=== PATIENT | male | born 1985 | race Caucasian/White ===

== ENCOUNTER 2016-09-05 00:17 | Emergency (ER) | payer BC, OTHER ==
[2016-09-05 00:23] VITALS: BP 115/60
--- NOTE | 2016-09-05 00:28 | EDM.PDOC ---
ED HPI GENERAL MEDICAL PROBLEM - General Chief Complaint: Upper Extremity Injury/Pain Stated Complaint: SHOULDER PAIN Time Seen by Provider: 09/05/16 00:26 - History of Present Illness INITIAL COMMENTS - FREE TEXT/NARRATIVE: HISTORY AND PHYSICAL: History of present illness: Patient is a 31-year-old white male that since her acute right shoulder pain patient states he has had problems with the shoulder off and on for quite some time but got progressively worse recently he does not recall any recent trauma or other concern. Review of systems: As per history of present illness and below otherwise all systems reviewed and negative. Past medical history: As per history of present illness and as reviewed below otherwise noncontributory. Surgical history: As per history of present illness and as reviewed below otherwise noncontributory. Social history: No reported history of drug or alcohol abuse. Family history: As per history of present illness and as reviewed below otherwise noncontributory. Physical exam: HEENT: Atraumatic, normocephalic, pupils reactive, negative for conjunctival pallor or scleral icterus, mucous membranes moist, throat clear, neck supple, nontender, trachea midline. Lungs: Clear to auscultation, breath sounds equal bilaterally, chest nontender. Heart: S1S2, regular, negative for clicks, rubs, or JVD. Abdomen: Soft, nondistended, nontender. Negative for masses or hepatosplenomegaly. Negative for costovertebral tenderness. Pelvis: Stable nontender. Genitourinary: Deferred. Rectal: Deferred. Extremities: Right shoulder is without any gross abnormalities he does have somewhat limited range of motion secondary to pain there is no crepitation warmth CMS neurovascular exam are unremarkable Neuro: Awake, alert, oriented. Cranial nerves II through XII unremarkable. Cerebellum unremarkable. Motor and sensory unremarkable throughout. Exam nonfocal. Diagnostics: X-ray right shoulder Therapeutics: Sling Impression: #1 right shoulder pain etiology to be determined Definitive disposition and diagnosis as appropriate pending reevaluation and review of above. Right Shoulder Pain Score (Numeric/FACES): 8 - Related Data Allergies Allergy/AdvReac Type Severity Reaction Status Date / Time perfumes Allergy Airway Uncoded 09/05/16 00:21 Tightness Home Meds: Home Meds Naproxen Sodium [Aleve] 1 tab PO TID 10/24/15 [History] Past Medical History - Past Health History Medical/Surgical History: Denies Medical/Surgical History HEENT History: Reports: None Cardiovascular History: Reports: None Respiratory History: Reports: Asthma Other Respiratory History: asthma as a child, pt states he thinks he has sleep apnea but has never been tested Gastrointestinal History: Reports: GERD Genitourinary History: Reports: None Musculoskeletal History: Reports: None Neurological History: Reports: None Psychiatric History: Reports: None Endocrine/Metabolic History: Reports: Obesity/BMI 30+ Hematologic History: Reports: None Immunologic History: Reports: None Oncologic (Cancer) History: Reports: None Dermatologic History: Reports: Psoriasis - Past Surgical History Head Surgeries/Procedures: Reports: None Social & Family History - Family History Family Medical History: Noncontributory - Tobacco Use Smoking Status *Q: Current Every Day Smoker Years of Tobacco use: 15 Packs/Tins Daily: 2 - Alcohol Use Days Per Week of Alcohol Use: 7 Number of Drinks Per Day: 2 Total Drinks Per Week: 14 - Recreational Drug Use Recreational Drug Use: No Drug Use in Last 12 Months: No Review of Systems - Review of Systems Review Of Systems: ROS reveals no pertinent complaints other than HPI. Trauma Exam - Physical Exam Exam: See Below (See dictation) Course - Vital Signs Last Recorded V/S: Last Vital Signs Temp 36.4 C 09/05/16 00:21 Pulse 76 09/05/16 00:21 Resp 16 09/05/16 00:21 BP 115/60 09/05/16 00:21 Pulse Ox 99 09/05/16 00:21 - Orders/Labs/Meds Orders: Active Orders 24 hr Category Date Time Status Shoulder Comp Rt [CR] Stat Exams 09/05/16 00:23 Ordered Departure - Departure Time of Disposition: 00:27 Disposition: Home, Self-Care 01 Condition: good Clinical Impression: Shoulder pain - Discharge Information Forms: ED Department Discharge Additional Instructions: The following information is given to patients seen in the emergency department who are being discharged to home. This information is to outline your options for follow-up care. We provide all patients seen in our emergency department with a follow-up referral. The need for follow-up, as well as the timing and circumstances, are variable depending upon the specifics of your emergency department visit. If you don't have a primary care physician on staff, we will provide you with a referral. We always advise you to contact your personal physician following an emergency department visit to inform them of the circumstance of the visit and for follow-up with them and/or the need for any referrals to a consulting specialist. The emergency department will also refer you to a specialist when appropriate. This referral assures that you have the opportunity for followup care with a specialist. All of these measure are taken in an effort to provide you with optimal care, which includes your followup. Under all circumstances we always encourage you to contact your private physician who remains a resource for coordinating your care. When calling for followup care, please make the office aware that this follow-up is from your recent emergency room visit. If for any reason you are refused follow-up, please contact the [facility] emergency department at and asked to speak to the emergency department charge nurse. [facility] - Orth[facility] Professional [address], [address] [place] [address] Ultram as prescribed sling as directed followup with orthopedic clinic above call for appointment return as needed as discussed - My Orders Last 24 Hours: My Active Orders 09/05/16 00:23 Shoulder Comp Rt [CR] Stat - Assessment/Plan Last 24 Hours: My Active Orders 09/05/16 00:23 Shoulder Comp Rt [CR] Stat
--- NOTE | 2016-09-08 10:47 | CR ---
EXAM DATE: 09/05/16 PATIENT'S AGE: 31 Patient: CASE ESCOBAR Facility: [place], [place] Site . Site : 1985 Study: XRay Shoulder Right [id number]/[id number] 12:41:51 AM Ordering Physician: Doctor Suárez Final Report: INDICATION: pain RIGHT SHOULDER No fracture, dislocation, or destructive lesion of bone is seen. No significant arthritic changes or soft tissue abnormalities are identified. IMPRESSION: Negative right shoulder radiographs. LESLY CONROY MD [employer] Dictated by: Matthew Conroy MD @ 09/05/2016 00:46:28 (Electronic Signature) Report Signed by Proxy. NY[facility] LANG[facility] TISCH HOSPITALBeatriz
== END 2016-09-05 01:19 | disposition home or self-care (01) ==
LOC: MW.ED 00:17
DX: M25.511 Pain in right shoulder (principal); J45.909 Unspecified asthma, uncomplicated; F17.210 Nicotine dependence, cigarettes, uncomplicated; K21.9 Gastro-esophageal reflux disease without esophagitis; L40.9 Psoriasis, unspecified; E66.9 Obesity, unspecified; Z68.42 Body mass index [BMI] 45.0-49.9, adult; Z91.09 Other allergy status, other than to drugs and biological substances
CPT/HCPCS: 73030-26-RT; 73030-RT; 99283

== ENCOUNTER 2019-11-04 00:44 | Emergency (ER) | payer BC ==
[2019-11-04] MEDS ORDERED: Diphtheria,Pertussis(Acell),Tetanus Vaccine 0.5 ML Syringe IM ONE (00:56)
--- NOTE | 2019-11-04 01:01 | EDM.PDOC ---
ED HPI GENERAL MEDICAL PROBLEM - General Chief Complaint: Skin Complaint Stated Complaint: LACERATION TO RIGHT HAND Time Seen by Provider: 11/04/19 00:51 - History of Present Illness INITIAL COMMENTS - FREE TEXT/NARRATIVE: History of present illness: [] Accidentally put his hand through a glass window which shattered. He has multiple lacerations and abrasions on the dominant right upper extremity. Patient does not know when his last tetanus shot was. Patient has minor pain worse obviously when he touches these wounds. He has no limitation in range of motion or sensation in the distal right upper extremity. Review of systems: As per history of present illness and below otherwise all systems reviewed and negative. Past medical history: As per history of present illness and as reviewed below otherwise noncontribut ory. Surgical history: As per history of present illness and as reviewed below otherwise noncontributory. Social history: No reported history of drug or alcohol abuse. Family history: As per history of present illness and as reviewed below otherwise noncontributory. Physical exam: Constitutional - well developed, well-nourished and in no acute distress HEENT - normocephalic, no evidence of trauma - external nose and mouth normal - no mass in neck and no JVD - mucosae moist EYES - full EOM, PERRL, no icterus - no evidence of inflammation, injection, or drainage Respiratory - no respiratory distress, equal bilateral expansion Musculoskeletal no gross deformity of long bones or joints - no tenderness, swelling or edema Neurologic - Alert and oriented times four - CN II-XII grossly intact - motor sensory and coordination symmetrically normal Psychiatric - appropriate mood and affect with normal thought content Hematologic - No petechiae or purpura - mucosa appropriate color and sclera not pale - normal nail bed color and refill Integument -the patient is lacerations and puncture wounds on the right upper extremity. There is a 1.5 cm laceration on the volar surface of the forearm at the junction the middle and distal third. There is a 1 cm laceration across the PIP of the fourth digit dorsally. There is a 1 cm laceration along the margin of the distal segment of the fourth digit. There is a linear abrasion over the lateral margin of the first segment of the fifth digit on the ulnar side. There is a dorsal puncture wound on the forearm at the junction of the middle third and distal third. Otherwise no rash or evidence of trauma - normal turgor Diagnostics: [] Therapeutics: [] Impression: [] Plan: [] Definitive disposition and diagnosis as appropriate pending reevaluation and review of above. Right Lower Arm Pain Score (Numeric/FACES): 4 - Related Data Allergies Allergy/AdvReac Type Severity Reaction Status Date / Time perfumes Allergy Airway Uncoded 11/04/19 01:01 Tightness Home Meds: Home Meds Naproxen Sodium [Aleve] 1 tab PO TID 10/24/15 [History] Past Medical History - Past Health History Medical/Surgical History: Denies Medical/Surgical History HEENT History: Reports: None Cardiovascular History: Reports: None Respiratory History: Reports: Asthma Other Respiratory History: asthma as a child, pt states he thinks he has sleep apnea but has never been tested Gastrointestinal History: Reports: GERD Genitourinary History: Reports: None Musculoskeletal History: Reports: None Neurological History: Reports: None Psychiatric History: Reports: None Endocrine/Metabolic History: Reports: Obesity/BMI 30+ Hematologic History: Reports: None Immunologic History: Reports: None Oncologic (Cancer) History: Reports: None Dermatologic History: Reports: Psoriasis - Past Surgical History Head Surgeries/Procedures: Reports: None Social & Family History - Family History Family Medical History: Noncontributory ED ROS GENERAL - Review of Systems Review Of Systems: Comprehensive ROS is negative, except as noted in HPI. ED EXAM, SKIN/RASH Exam: See Below Text/Narrative:: My physical exam is in the HPI ED SKIN PROCEDURES - Laceration/Wound Repair Right Arm Appearance: Superficial Distal NVT: Neuro & Vascular Intact Anesthetic Type: Local Local Anesthesia - Lidocaine (Xylocaine): 1% Plain Local Anesthetic Volume: 5cc Skin Prep: Saline Exploration/Debridement/Repair: Wound Explored Closed with: Sutures Lac/Wound length In cm: 1.5 Suture Size: 4-0 # of Sutures: 4 Suture Type: Nylon Sterile Dressing Applied: Nurse Tetanus Status Addressed: Yes Course - Vital Signs Text/Narrative:: 1 wound on the volar forearm was sutured see procedure note the remainder were closed with Dermabond. Last Recorded V/S: Last Vital Signs Temp 98.1 F 11/04/19 00:58 Pulse 95 11/04/19 00:58 Resp 18 11/04/19 00:58 BP 132/86 11/04/19 00:58 Pulse Ox 99 11/04/19 00:58 - Orders/Labs/Meds Orders: Active Orders 24 hr Category Date Time Status Vaccines to be Administered [RC] PER UNIT ROUTINE Care 11/04/19 00:57 Active Meds: Medications Discontinued Medications Generic Name Dose Route Start Last Admin Trade Name Jolie PRN Reason Stop Dose Admin Diphtheria/Tetanus/Acell Pertussis 0.5 ml 11/04/19 00:56 11/04/19 01:19 Adacel IM 11/04/19 00:57 0.5 ml .ONCE ONE Administration Lidocaine HCl 5 ml 11/04/19 01:01 11/04/19 01:18 Xylocaine-Mpf 1% INJECT 11/04/19 01:02 5 ml ONETIME ONE Administration Octyl Cyanoacrylate 1 applic 11/04/19 01:02 11/04/19 01:19 Dermabond Advance TOP 11/04/19 01:03 1 applic ONETIME ONE Administration Departure - Departure Time of Disposition: 01:47 Disposition: Home, Self-Care 01 Condition: Good Clinical Impression: Lacerations of multiple sites of right arm - Discharge Information Instructions: Sutures, Jacky, or Adhesive Wound Closure, [id number] Referrals: Brad Calloway MD [Primary Care Provider] - Forms: ED Department Discharge Additional Instructions: The following information is given to patients seen in the emergency department who are being discharged to home. This information is to outline your options for follow-up care. We provide all patients seen in our emergency department with a follow-up referral. The need for follow-up, as well as the timing and circumstances, are variable depending upon the specifics of your emergency department visit. If you don't have a primary care physician on staff, we will provide you with a referral. We always advise you to contact your personal physician following an emergency department visit to inform them of the circumstance of the visit and for follow-up with them and/or the need for any referrals to a consulting specialist. The emergency department will also refer you to a specialist when appropriate. This referral assures that you have the opportunity for follow-up care with a specialist. All of these measure are taken in an effort to provide you with optimal care, which includes your follow-up. Under all circumstances we always encourage you to contact your private physician who remains a resource for coordinating your care. When calling for follow-up care, please make the office aware that this follow-up is from your recent emergency room visit. If for any reason you are refused follow-up, please contact the [facility] Emergency Department at and asked to speak to the emergency department charge nurse. [facility] - Primary Care [address], [place] [address] [facility] [address] [place] [id number] Sutures out in 7 to 10 days Sepsis Event Note (ED) - Focused Exam Vital Signs: Vital Signs Temp Pulse Resp BP Pulse Ox 11/04/19 00:58 98.1 F 95 18 132/86 99 - My Orders Last 24 Hours: My Active Orders 11/04/19 00:57 Vaccines to be Administered [RC] PER UNIT ROUTINE - Assessment/Plan Last 24 Hours: My Active Orders 11/04/19 00:57 Vaccines to be Administered [RC] PER UNIT ROUTINE
[2019-11-04] MEDS ORDERED: Octyl 2-Cyanoacrylate 1 Tube TOP ONE (01:02)
[2019-11-04 01:03] VITALS: BP 132/86; PULSE 95
--- NOTE | 2019-11-04 01:26 | CR ---
INDICATION: Laceration. Possible glass foreign body. COMPARISON: None available. TECHNIQUE: The right hand is examined with PA, lateral, and oblique views. FINDINGS: There is no sign of fracture or dislocation. On the lateral view, there is a 5 millimeter long linear radiodensity in the anterior aspect of the 2nd finger, overlying the proximal shaft of the 2nd middle phalanx. It is seen to overlie the base of the middle phalanx on the AP view. This has the appearance of a linear metallic foreign body rather than a glass foreign body. Recommend correlation with the clinical exam. There is no sign of any additional radiopaque or radiolucent foreign body elsewhere in the hand. Glass is typically mildly radiopaque. I do not see a distinct laceration in the hand. The soft tissues are otherwise normal in appearance without sign of additional radio-opaque foreign body. No degenerative disease is seen. IMPRESSION: 5 millimeter long linear metallic foreign body located in the anterior 2nd finger adjacent to the proximal shaft of the 2nd middle phalanx. This appears to be a short piece of wire. No sign of any definite laceration or glass foreign body. No sign of any osseous abnormality. Dictated by Hermes Granger MD @ Nov 04 2019 1:20AM Signed by Dr. Hermes Granger @ Nov 04 2019 1:24AM
== END 2019-11-04 02:00 | disposition home or self-care (01) ==
LOC: MW.ED 00:44
DX: S51.811A Laceration without foreign body of right forearm, initial encounter (principal); S61.214A Laceration without foreign body of right ring finger without damage to nail, initial encounter; S61.216A Laceration without foreign body of right little finger without damage to nail, initial encounter; Z23 Encounter for immunization; Z91.09 Other allergy status, other than to drugs and biological substances; W25.XXXA Contact with sharp glass, initial encounter
CPT/HCPCS: 12002; 73120; 90471; 90715; 99283; A9270; J2001; 99282

== ENCOUNTER 2022-05-10 21:22 | Emergency (ER) | payer BC ==
[2022-05-10 21:36] VITALS: BP 129/60; PULSE 92
[2022-05-10 22:21] LABS: CARBON DIOXIDE,CO2 30.9 mmol/L (21.0-32.0); POTASSIUM,K 4.1 mmol/L (3.5-5.1)
[2022-05-10] MEDS ORDERED: Doxycycline 100 MG Cap PO ONE (22:28)
[2022-05-10] MEDS ORDERED: Hydrocortisone 1% Crm 30 GM Tube TOP STA (22:29)
[2022-05-10] MEDS ORDERED: diphenhydrAMINE 50 MG Cap PO ONE (22:32)
== END 2022-05-10 22:49 | disposition home or self-care (01) ==
LOC: MW.ED 21:22
DX: L03.90 Cellulitis, unspecified (principal); L40.9 Psoriasis, unspecified; B35.9 Dermatophytosis, unspecified; K21.9 Gastro-esophageal reflux disease without esophagitis; E66.9 Obesity, unspecified; Z91.048 Other nonmedicinal substance allergy status; Z68.43 Body mass index [BMI] 50.0-59.9, adult
CPT/HCPCS: 36415; 80053; 85025; 85652; 86140; 99283; A9270

== ENCOUNTER 2024-08-04 09:45 | Emergency (ER) | payer BC ==
[2024-08-04] MEDS: Albuterol/Ipratropium 3.0-0.5 MG/3 ML Neb Soln NEB ONE (10:20)
[2024-08-04] MEDS: Lidocaine 1% 5 ML VIAL INJECT ONE (10:20)
[2024-08-04] MEDS: Diphtheria,Pertussis(Acell),Tetanus Vaccine 0.5 ML Syringe IM ONE (10:20)
[2024-08-04 10:44] LABS: BASOPHILS ABSOLUTE AUTO 0.05 K/uL (0.00-0.20); BASOPHILS PERCENT AUTO 0.4 % (0.0-1.0); EOSINOPHILS ABSOLUTE AUTO 0.79 K/uL (0.00-0.45); EOSINOPHILS PERCENT AUTO 6.4 % (0.0-6.0); HEMOGLOBIN 13.1 g/dL (14.0-18.0); IMMATURE GRAN ABSOLUTE AUTO 0.03 K/uL (0.00-0.05); IMMATURE GRAN PERCENT AUTO 0.2 % (0.0-0.4); LYMPHOCYTES ABSOLUTE AUTO 1.52 K/uL (1.00-4.80); LYMPHOCYTES PERCENT AUTO 12.4 % (24.0-44.0); MEAN CORPUSCULAR HEMOGLOBIN 23.8 pg (28.0-32.0); MEAN CORPUSCULAR HGB CONC 30.5 g/dL (32.0-36.0); MEAN PLATELET VOLUME 8.8 fL (9.4-12.4); MONOCYTES ABSOLUTE AUTO 0.65 K/uL (0.00-0.80); MONOCYTES PERCENT AUTO 5.3 % (0.0-8.0); NEUTROPHILS ABSOLUTE AUTO 9.23 K/uL (1.80-7.70); NEUTROPHILS PERCENT AUTO 75.3 % (41.0-71.0); PLATELET COUNT,PLT 244 K/uL (150-400); RED BLOOD CELL COUNT 5.51 M/uL (4.52-5.90); WHITE BLOOD CELL COUNT,WBC 12.27 K/uL (3.9-11.3)
[2024-08-04 10:57] LABS: INR 1.05 (0.86-1.11); PTT,PARTIAL THROMBOPLSTIN TIME 27.3 SEC (23.9-30.7)
[2024-08-04 11:20] LABS: A/G RATIO 0.8 (0.9-1.6); ALBUMIN 2.9 g/dL (3.4-5.0); BILIRUBIN TOTAL 0.3 mg/dL (0.2-1.0); CALCIUM 8.1 mg/dL (8.5-10.1); CARBON DIOXIDE,CO2 34.3 mmol/L (21.0-32.0); CREATININE 0.8 mg/dL (0.8-1.3); EST CRCL DRUG DOSING (CG) 125.2 mL/min; MAGNESIUM 1.8 mg/dL (1.8-2.4); POTASSIUM,K 4.5 mmol/L (3.5-5.1); PROTEIN TOTAL,TP 6.7 g/dL (6.4-8.2)
[2024-08-04] MEDS: Iopamidol 755 MG/ML 500 ML Multipack Bottle IVPUSH STA ×2 (12:47→12:48)
[2024-08-04 12:57] VITALS: BP 115/64; PULSE 79
== END 2024-08-04 15:13 | disposition left against medical advice (07) ==
LOC: MW.ED 09:45
DX: S61.412A Laceration without foreign body of left hand, initial encounter (principal); J44.1 Chronic obstructive pulmonary disease with (acute) exacerbation; E66.9 Obesity, unspecified; F17.210 Nicotine dependence, cigarettes, uncomplicated; Z23 Encounter for immunization; Z91.09 Other allergy status, other than to drugs and biological substances; Z53.20 Procedure and treatment not carried out because of patient's decision for unspecified reasons; Z68.30 Body mass index [BMI] 30.0-30.9, adult; Z79.899 Other long term (current) drug therapy; Z79.52 Long term (current) use of systemic steroids; W26.9XXA Contact with unspecified sharp object(s), initial encounter
CPT/HCPCS: 12001; 36415; 71046; 71275; 80053; 83690; 83735; 83880; 85025; 85610; 85730; 87428; 90471; 90715; 96374; 99284; J1100; J2003; J7620; Q9967; A9270-GY

== ENCOUNTER 2024-10-16 09:55 | Emergency (ER) | payer BC ==
[2024-10-16] MEDS ORDERED: Sodium Chloride 0.9% 10 ML Syringe FLUSH PRN (10:57)
[2024-10-16] MEDS ORDERED: Sodium Chloride 0.9% 2.5 ML Syringe FLUSH PRN (10:57)
[2024-10-16 12:00] LABS: BASOPHILS ABSOLUTE AUTO 0.06 K/uL (0.00-0.20); BASOPHILS PERCENT AUTO 0.4 % (0.0-1.0); EOSINOPHILS ABSOLUTE AUTO 0.30 K/uL (0.00-0.45); EOSINOPHILS PERCENT AUTO 2.2 % (0.0-6.0); IMMATURE GRAN ABSOLUTE AUTO 0.08 K/uL (0.00-0.05); IMMATURE GRAN PERCENT AUTO 0.6 % (0.0-0.4); LYMPHOCYTES ABSOLUTE AUTO 1.41 K/uL (1.00-4.80); LYMPHOCYTES PERCENT AUTO 10.4 % (24.0-44.0); MEAN PLATELET VOLUME 9.0 fL (9.4-12.4); MONOCYTES ABSOLUTE AUTO 0.82 K/uL (0.00-0.80); MONOCYTES PERCENT AUTO 6.0 % (0.0-8.0); NEUTROPHILS ABSOLUTE AUTO 10.95 K/uL (1.80-7.70); NEUTROPHILS PERCENT AUTO 80.4 % (41.0-71.0); NRBC ABSOLUTE 0.00 K/uL (0.00-0.02); NRBC PERCENT 0.0 /100WBC (0.0-0.2); PLATELET COUNT,PLT 210 K/uL (150-400); RED BLOOD CELL COUNT 5.75 M/uL (4.52-5.90); WHITE BLOOD CELL COUNT,WBC 13.62 K/uL (3.9-11.3)
[2024-10-16 12:05] VITALS: PULSE 82
[2024-10-16 12:34] LABS: A/G RATIO 0.5 (0.9-1.6); ALANINE AMINOTRANSFERASE,ALT 30.0 IU/L (14-63); ASPARTATE AMNIOTRANSFERASE,AST 20.0 IU/L (15-37); BILIRUBIN TOTAL 0.5 mg/dL (0.2-1.0); BLOOD UREA NITROGEN,BUN 16.0 mg/dL (7.0-18.0); CARBON DIOXIDE,CO2 30.0 mmol/L (21.0-32.0); CHLORIDE,CL 99.0 mmol/L (98-107); CREATININE 1.1 mg/dL (0.8-1.3); EST CRCL DRUG DOSING (CG) 91.05 mL/min; GLUCOSE RANDOM 100.0 mg/dL (74-106); POTASSIUM,K 4.0 mmol/L (3.5-5.1); PROTEIN TOTAL,TP 7.5 g/dL (6.4-8.2); SODIUM,NA 137.0 mmol/L (136-148)
[2024-10-16 12:35] LABS: ESTIMATED GFR 88.0 mL/min (>60)
[2024-10-16 12:38] LABS: LACTIC ACID 1.0 mmol/L (0.4-2.0)
[2024-10-16 13:42] VITALS: BP 122/85
== END 2024-10-16 13:42 | disposition home or self-care (01) ==
LOC: MW.ED 09:55
DX: L03.116 Cellulitis of left lower limb (principal); E66.9 Obesity, unspecified; Z75.3 Unavailability and inaccessibility of health-care facilities; Z91.09 Other allergy status, other than to drugs and biological substances; Z79.899 Other long term (current) drug therapy; Z68.44 Body mass index [BMI] 60.0-69.9, adult
CPT/HCPCS: 36415; 80053; 83605; 85025; 87040; 93971; 99284; A9270

== ENCOUNTER 2024-10-21 11:17 | Inpatient (IN) | payer BC ==
[2024-10-21] MEDS ORDERED: Sodium Chloride 0.9% 2.5 ML Syringe FLUSH PRN ×2 (11:44→17:24)
[2024-10-21] MEDS: Sodium Chloride 0.9% 10 ML Syringe FLUSH PRN (12:00)
[2024-10-21] MEDS: VANCOmycin 2 GM/400 ML 2 GM in Premix Bag 1 BAG IV ONE (12:43)
[2024-10-21 13:12] LABS: BASOPHILS ABSOLUTE AUTO 0.07 K/uL (0.00-0.20); BASOPHILS PERCENT AUTO 0.3 % (0.0-1.0); EOSINOPHILS ABSOLUTE AUTO 0.08 K/uL (0.00-0.45); EOSINOPHILS PERCENT AUTO 0.4 % (0.0-6.0); IMMATURE GRAN ABSOLUTE AUTO 0.20 K/uL (0.00-0.05); IMMATURE GRAN PERCENT AUTO 0.9 % (0.0-0.4); LYMPHOCYTES ABSOLUTE AUTO 1.47 K/uL (1.00-4.80); LYMPHOCYTES PERCENT AUTO 6.7 % (24.0-44.0); MEAN PLATELET VOLUME 8.9 fL (9.4-12.4); MONOCYTES ABSOLUTE AUTO 1.31 K/uL (0.00-0.80); MONOCYTES PERCENT AUTO 5.9 % (0.0-8.0); NEUTROPHILS ABSOLUTE AUTO 18.90 K/uL (1.80-7.70); NEUTROPHILS PERCENT AUTO 85.8 % (41.0-71.0); NRBC ABSOLUTE 0.00 K/uL (0.00-0.02); NRBC PERCENT 0.0 /100WBC (0.0-0.2); PLATELET COUNT,PLT 317 K/uL (150-400); RED BLOOD CELL COUNT 5.67 M/uL (4.52-5.90); WHITE BLOOD CELL COUNT,WBC 22.03 K/uL (3.9-11.3)
[2024-10-21 13:31] LABS: BLOOD UREA NITROGEN,BUN 13.0 mg/dL (7.0-18.0); CARBON DIOXIDE,CO2 28.2 mmol/L (21.0-32.0); CHLORIDE,CL 98.0 mmol/L (98-107); CREATININE 1.0 mg/dL (0.8-1.3); EST CRCL DRUG DOSING (CG) 100.16 mL/min; GLUCOSE RANDOM 120.0 mg/dL (74-106); POTASSIUM,K 4.2 mmol/L (3.5-5.1); SODIUM,NA 135.0 mmol/L (136-148)
[2024-10-21 13:40] LABS: ESTIMATED GFR 99.0 mL/min (>60)
[2024-10-21 13:44] LABS: LACTIC ACID 1.2 mmol/L (0.4-2.0)
[2024-10-21] MEDS: Iopamidol 755 MG/ML 500 ML Multipack Bottle IVPUSH STA (14:44)
[2024-10-21] MEDS ORDERED: 50% Dextrose in Water 50 ML Syringe IVPUSH PRN (17:14)
[2024-10-21] MEDS ORDERED: Sodium Chloride 0.9% 10 ML Syringe FLUSH PRN (17:24)
[2024-10-21] MEDS: Furosemide 40 MG/4 ML VIAL IVPUSH SCH (18:38)
[2024-10-21] MEDS: Nystatin Crm 30 GM Tube TOP SCH (18:39)
[2024-10-21] MEDS: Nystatin Topical Powder 15 GM Bottle TOP SCH (22:03)
[2024-10-21] MEDS: SILDENAFIL 20 MG PO SCH (22:05)
[2024-10-22] MEDS: VANCOmycin 2 GM/400 ML 2 GM in Premix Bag 1 BAG IV SCH
[2024-10-22 06:09] LABS: BASOPHILS ABSOLUTE AUTO 0.07 K/uL (0.00-0.20); BASOPHILS PERCENT AUTO 0.3 % (0.0-1.0); EOSINOPHILS ABSOLUTE AUTO 0.12 K/uL (0.00-0.45); EOSINOPHILS PERCENT AUTO 0.5 % (0.0-6.0); IMMATURE GRAN ABSOLUTE AUTO 0.16 K/uL (0.00-0.05); IMMATURE GRAN PERCENT AUTO 0.7 % (0.0-0.4); LYMPHOCYTES ABSOLUTE AUTO 1.44 K/uL (1.00-4.80); LYMPHOCYTES PERCENT AUTO 6.5 % (24.0-44.0); MEAN PLATELET VOLUME 9.1 fL (9.4-12.4); MONOCYTES ABSOLUTE AUTO 1.27 K/uL (0.00-0.80); MONOCYTES PERCENT AUTO 5.7 % (0.0-8.0); NEUTROPHILS ABSOLUTE AUTO 19.15 K/uL (1.80-7.70); NEUTROPHILS PERCENT AUTO 86.3 % (41.0-71.0); NRBC ABSOLUTE 0.00 K/uL (0.00-0.02); NRBC PERCENT 0.0 /100WBC (0.0-0.2); PLATELET COUNT,PLT 309 K/uL (150-400); RED BLOOD CELL COUNT 5.21 M/uL (4.52-5.90); WHITE BLOOD CELL COUNT,WBC 22.21 K/uL (3.9-11.3)
[2024-10-22 06:34] LABS: A/G RATIO 0.3 (0.9-1.6); ALANINE AMINOTRANSFERASE,ALT 29.0 IU/L (14-63); ASPARTATE AMNIOTRANSFERASE,AST 19.0 IU/L (15-37); BILIRUBIN TOTAL 0.8 mg/dL (0.2-1.0); BLOOD UREA NITROGEN,BUN 9.0 mg/dL (7.0-18.0); CARBON DIOXIDE,CO2 26.4 mmol/L (21.0-32.0); CHLORIDE,CL 97.0 mmol/L (98-107); CREATININE 1.0 mg/dL (0.8-1.3); EST CRCL DRUG DOSING (CG) 100.16 mL/min; GLUCOSE RANDOM 101.0 mg/dL (74-106); POTASSIUM,K 3.9 mmol/L (3.5-5.1); PROTEIN TOTAL,TP 7.7 g/dL (6.4-8.2); SODIUM,NA 132.0 mmol/L (136-148)
[2024-10-22 06:35] LABS: ESTIMATED GFR 99.0 mL/min (>60)
[2024-10-22] MEDS: buPROPion 150 MG Tab.ER PO SCH (09:11)
[2024-10-22] MEDS: Ketorolac 30 MG/ML SDV IVPUSH ONE (14:17)
[2024-10-22] MEDS: Iopamidol 755 MG/ML 500 ML Multipack Bottle IVPUSH STA (18:40)
[2024-10-23] MEDS ORDERED: Naloxone 0.4 MG/ML SDV IVPUSH PRN (01:25)
[2024-10-23 08:07] LABS: BASOPHILS ABSOLUTE AUTO 0.08 K/uL (0.00-0.20); BASOPHILS PERCENT AUTO 0.3 % (0.0-1.0); EOSINOPHILS ABSOLUTE AUTO 0.12 K/uL (0.00-0.45); EOSINOPHILS PERCENT AUTO 0.5 % (0.0-6.0); IMMATURE GRAN ABSOLUTE AUTO 0.15 K/uL (0.00-0.05); IMMATURE GRAN PERCENT AUTO 0.6 % (0.0-0.4); LYMPHOCYTES ABSOLUTE AUTO 1.12 K/uL (1.00-4.80); LYMPHOCYTES PERCENT AUTO 4.8 % (24.0-44.0); MEAN PLATELET VOLUME 8.7 fL (9.4-12.4); MONOCYTES ABSOLUTE AUTO 1.10 K/uL (0.00-0.80); MONOCYTES PERCENT AUTO 4.7 % (0.0-8.0); NEUTROPHILS ABSOLUTE AUTO 20.94 K/uL (1.80-7.70); NEUTROPHILS PERCENT AUTO 89.1 % (41.0-71.0); NRBC ABSOLUTE 0.00 K/uL (0.00-0.02); NRBC PERCENT 0.0 /100WBC (0.0-0.2); PLATELET COUNT,PLT 280 K/uL (150-400); RED BLOOD CELL COUNT 5.57 M/uL (4.52-5.90); WHITE BLOOD CELL COUNT,WBC 23.51 K/uL (3.9-11.3)
[2024-10-23 08:52] LABS: A/G RATIO 0.3 (0.9-1.6); ALANINE AMINOTRANSFERASE,ALT 25.0 IU/L (14-63); ASPARTATE AMNIOTRANSFERASE,AST 18.0 IU/L (15-37); BILIRUBIN TOTAL 0.8 mg/dL (0.2-1.0); BLOOD UREA NITROGEN,BUN 12.0 mg/dL (7.0-18.0); CARBON DIOXIDE,CO2 29.0 mmol/L (21.0-32.0); CHLORIDE,CL 99.0 mmol/L (98-107); CREATININE 0.9 mg/dL (0.8-1.3); EST CRCL DRUG DOSING (CG) 111.29 mL/min; GLUCOSE RANDOM 123.0 mg/dL (74-106); POTASSIUM,K 4.5 mmol/L (3.5-5.1); PROTEIN TOTAL,TP 8.1 g/dL (6.4-8.2); SODIUM,NA 135.0 mmol/L (136-148)
[2024-10-23 08:53] LABS: ESTIMATED GFR 112.0 mL/min (>60)
[2024-10-24 05:49] LABS: BASOPHILS ABSOLUTE AUTO 0.07 K/uL (0.00-0.20); BASOPHILS PERCENT AUTO 0.3 % (0.0-1.0); EOSINOPHILS ABSOLUTE AUTO 0.11 K/uL (0.00-0.45); EOSINOPHILS PERCENT AUTO 0.5 % (0.0-6.0); IMMATURE GRAN ABSOLUTE AUTO 0.17 K/uL (0.00-0.05); IMMATURE GRAN PERCENT AUTO 0.8 % (0.0-0.4); LYMPHOCYTES ABSOLUTE AUTO 1.28 K/uL (1.00-4.80); LYMPHOCYTES PERCENT AUTO 5.9 % (24.0-44.0); MEAN PLATELET VOLUME 8.6 fL (9.4-12.4); MONOCYTES ABSOLUTE AUTO 1.23 K/uL (0.00-0.80); MONOCYTES PERCENT AUTO 5.7 % (0.0-8.0); NEUTROPHILS ABSOLUTE AUTO 18.66 K/uL (1.80-7.70); NEUTROPHILS PERCENT AUTO 86.8 % (41.0-71.0); NRBC ABSOLUTE 0.00 K/uL (0.00-0.02); NRBC PERCENT 0.0 /100WBC (0.0-0.2); PLATELET COUNT,PLT 323 K/uL (150-400); RED BLOOD CELL COUNT 5.40 M/uL (4.52-5.90); WHITE BLOOD CELL COUNT,WBC 21.52 K/uL (3.9-11.3)
[2024-10-24 06:06] LABS: BLOOD UREA NITROGEN,BUN 14.0 mg/dL (7.0-18.0); CARBON DIOXIDE,CO2 33.3 mmol/L (21.0-32.0); CHLORIDE,CL 96.0 mmol/L (98-107); CREATININE 1.0 mg/dL (0.8-1.3); EST CRCL DRUG DOSING (CG) 100.16 mL/min; GLUCOSE RANDOM 170.0 mg/dL (74-106); POTASSIUM,K 4.1 mmol/L (3.5-5.1); SODIUM,NA 135.0 mmol/L (136-148)
[2024-10-24 06:09] LABS: ESTIMATED GFR 99.0 mL/min (>60)
[2024-10-24] MEDS: Ondansetron 4 MG/2 ML SDV IVPUSH PRN (19:21)
[2024-10-25 05:31] LABS: BASOPHILS ABSOLUTE AUTO 0.07 K/uL (0.00-0.20); BASOPHILS PERCENT AUTO 0.3 % (0.0-1.0); EOSINOPHILS ABSOLUTE AUTO 0.01 K/uL (0.00-0.45); EOSINOPHILS PERCENT AUTO 0.0 % (0.0-6.0); IMMATURE GRAN ABSOLUTE AUTO 0.15 K/uL (0.00-0.05); IMMATURE GRAN PERCENT AUTO 0.7 % (0.0-0.4); LYMPHOCYTES ABSOLUTE AUTO 1.22 K/uL (1.00-4.80); LYMPHOCYTES PERCENT AUTO 5.8 % (24.0-44.0); MEAN PLATELET VOLUME 8.6 fL (9.4-12.4); MONOCYTES ABSOLUTE AUTO 1.45 K/uL (0.00-0.80); MONOCYTES PERCENT AUTO 6.9 % (0.0-8.0); NEUTROPHILS ABSOLUTE AUTO 17.97 K/uL (1.80-7.70); NEUTROPHILS PERCENT AUTO 86.3 % (41.0-71.0); NRBC ABSOLUTE 0.00 K/uL (0.00-0.02); NRBC PERCENT 0.0 /100WBC (0.0-0.2); PLATELET COUNT,PLT 326 K/uL (150-400); RED BLOOD CELL COUNT 5.31 M/uL (4.52-5.90); WHITE BLOOD CELL COUNT,WBC 20.87 K/uL (3.9-11.3)
[2024-10-25 05:57] LABS: BLOOD UREA NITROGEN,BUN 19.0 mg/dL (7.0-18.0); CARBON DIOXIDE,CO2 36.3 mmol/L (21.0-32.0); CHLORIDE,CL 98.0 mmol/L (98-107); CREATININE 1.2 mg/dL (0.8-1.3); EST CRCL DRUG DOSING (CG) 83.47 mL/min; ESTIMATED GFR 79.0 mL/min (>60); GLUCOSE RANDOM 123.0 mg/dL (74-106); POTASSIUM,K 4.9 mmol/L (3.5-5.1); SODIUM,NA 136.0 mmol/L (136-148)
[2024-10-25 09:00] LABS: BASE EXCESS ARTERIAL 14.6 (-2.0-3.0); BICARBONATE,ARTERIAL 43 mEq/L (21-28); PCO2 ARTERIAL 73 mmHG (35-45); PO2 ARTERIAL 66 mmHG (83-108)
[2024-10-25 15:21] LABS: PCO2 ARTERIAL 82 mmHG (35-45)
[2024-10-25 15:22] LABS: BASE EXCESS ARTERIAL 15.8 (-2.0-3.0); BICARBONATE,ARTERIAL 45 mEq/L (21-28); PO2 ARTERIAL 188 mmHG (83-108)
[2024-10-25 20:05] LABS: BASE EXCESS ARTERIAL 16.9 (-2.0-3.0); BICARBONATE,ARTERIAL 46 mEq/L (21-28); PCO2 ARTERIAL 80 mmHG (35-45); PO2 ARTERIAL 171 mmHG (83-108)
[2024-10-25] MEDS: fentaNYL 100 MCG/2 ML SDV IVPUSH PRN (21:42)
[2024-10-26 06:24] LABS: BASOPHILS ABSOLUTE AUTO 0.06 K/uL (0.00-0.20); BASOPHILS PERCENT AUTO 0.4 % (0.0-1.0); EOSINOPHILS ABSOLUTE AUTO 0.17 K/uL (0.00-0.45); EOSINOPHILS PERCENT AUTO 1.1 % (0.0-6.0); IMMATURE GRAN ABSOLUTE AUTO 0.08 K/uL (0.00-0.05); IMMATURE GRAN PERCENT AUTO 0.5 % (0.0-0.4); LYMPHOCYTES ABSOLUTE AUTO 0.85 K/uL (1.00-4.80); LYMPHOCYTES PERCENT AUTO 5.7 % (24.0-44.0); MEAN PLATELET VOLUME 8.7 fL (9.4-12.4); MONOCYTES ABSOLUTE AUTO 0.80 K/uL (0.00-0.80); MONOCYTES PERCENT AUTO 5.4 % (0.0-8.0); NEUTROPHILS ABSOLUTE AUTO 12.99 K/uL (1.80-7.70); NEUTROPHILS PERCENT AUTO 86.9 % (41.0-71.0); NRBC ABSOLUTE 0.00 K/uL (0.00-0.02); NRBC PERCENT 0.0 /100WBC (0.0-0.2); PLATELET COUNT,PLT 266 K/uL (150-400); RED BLOOD CELL COUNT 5.16 M/uL (4.52-5.90); WHITE BLOOD CELL COUNT,WBC 14.95 K/uL (3.9-11.3)
[2024-10-26 06:55] LABS: BLOOD UREA NITROGEN,BUN 18.0 mg/dL (7.0-18.0); CARBON DIOXIDE,CO2 41.1 mmol/L (21.0-32.0); CHLORIDE,CL 96.0 mmol/L (98-107); CREATININE 1.1 mg/dL (0.8-1.3); EST CRCL DRUG DOSING (CG) 91.05 mL/min; GLUCOSE RANDOM 166.0 mg/dL (74-106); POTASSIUM,K 4.4 mmol/L (3.5-5.1); SODIUM,NA 137.0 mmol/L (136-148)
[2024-10-26 07:05] LABS: ESTIMATED GFR 88.0 mL/min (>60)
[2024-10-27 06:24] LABS: BASOPHILS ABSOLUTE AUTO 0.06 K/uL (0.00-0.20); BASOPHILS PERCENT AUTO 0.4 % (0.0-1.0); EOSINOPHILS ABSOLUTE AUTO 0.29 K/uL (0.00-0.45); EOSINOPHILS PERCENT AUTO 2.1 % (0.0-6.0); IMMATURE GRAN ABSOLUTE AUTO 0.08 K/uL (0.00-0.05); IMMATURE GRAN PERCENT AUTO 0.6 % (0.0-0.4); LYMPHOCYTES ABSOLUTE AUTO 0.98 K/uL (1.00-4.80); LYMPHOCYTES PERCENT AUTO 7.1 % (24.0-44.0); MEAN PLATELET VOLUME 8.9 fL (9.4-12.4); MONOCYTES ABSOLUTE AUTO 1.06 K/uL (0.00-0.80); MONOCYTES PERCENT AUTO 7.6 % (0.0-8.0); NEUTROPHILS ABSOLUTE AUTO 11.39 K/uL (1.80-7.70); NEUTROPHILS PERCENT AUTO 82.2 % (41.0-71.0); NRBC ABSOLUTE 0.00 K/uL (0.00-0.02); NRBC PERCENT 0.0 /100WBC (0.0-0.2); PLATELET COUNT,PLT 303 K/uL (150-400); RED BLOOD CELL COUNT 4.96 M/uL (4.52-5.90); WHITE BLOOD CELL COUNT,WBC 13.86 K/uL (3.9-11.3)
[2024-10-27 06:47] LABS: BLOOD UREA NITROGEN,BUN 17.0 mg/dL (7.0-18.0); CARBON DIOXIDE,CO2 34.4 mmol/L (21.0-32.0); CHLORIDE,CL 99.0 mmol/L (98-107); CREATININE 1.0 mg/dL (0.8-1.3); EST CRCL DRUG DOSING (CG) 100.16 mL/min; GLUCOSE RANDOM 106.0 mg/dL (74-106); POTASSIUM,K 4.4 mmol/L (3.5-5.1); SODIUM,NA 137.0 mmol/L (136-148); VANCOMYCIN RANDOM 21.7 ug/mL
[2024-10-27 06:57] LABS: ESTIMATED GFR 99.0 mL/min (>60)
[2024-10-27] MEDS: Furosemide 40 MG/4 ML VIAL IVPUSH ONE (15:15)
[2024-10-28 06:33] LABS: BASOPHILS ABSOLUTE AUTO 0.06 K/uL (0.00-0.20); BASOPHILS PERCENT AUTO 0.5 % (0.0-1.0); EOSINOPHILS ABSOLUTE AUTO 0.29 K/uL (0.00-0.45); EOSINOPHILS PERCENT AUTO 2.4 % (0.0-6.0); IMMATURE GRAN ABSOLUTE AUTO 0.08 K/uL (0.00-0.05); IMMATURE GRAN PERCENT AUTO 0.7 % (0.0-0.4); LYMPHOCYTES ABSOLUTE AUTO 1.12 K/uL (1.00-4.80); LYMPHOCYTES PERCENT AUTO 9.2 % (24.0-44.0); MEAN PLATELET VOLUME 8.7 fL (9.4-12.4); MONOCYTES ABSOLUTE AUTO 0.87 K/uL (0.00-0.80); MONOCYTES PERCENT AUTO 7.2 % (0.0-8.0); NEUTROPHILS ABSOLUTE AUTO 9.74 K/uL (1.80-7.70); NEUTROPHILS PERCENT AUTO 80.0 % (41.0-71.0); NRBC ABSOLUTE 0.00 K/uL (0.00-0.02); NRBC PERCENT 0.0 /100WBC (0.0-0.2); PLATELET COUNT,PLT 328 K/uL (150-400); RED BLOOD CELL COUNT 5.24 M/uL (4.52-5.90); WHITE BLOOD CELL COUNT,WBC 12.16 K/uL (3.9-11.3)
[2024-10-28 06:53] LABS: BLOOD UREA NITROGEN,BUN 17.0 mg/dL (7.0-18.0); CARBON DIOXIDE,CO2 34.7 mmol/L (21.0-32.0); CHLORIDE,CL 100.0 mmol/L (98-107); CREATININE 1.1 mg/dL (0.8-1.3); EST CRCL DRUG DOSING (CG) 91.05 mL/min; GLUCOSE RANDOM 111.0 mg/dL (74-106); POTASSIUM,K 4.1 mmol/L (3.5-5.1); SODIUM,NA 138.0 mmol/L (136-148)
[2024-10-28 07:01] LABS: ESTIMATED GFR 88.0 mL/min (>60)
[2024-10-28] MEDS: Furosemide 40 MG/4 ML VIAL IVPUSH STA (13:35)
[2024-10-29 05:38] LABS: BASOPHILS ABSOLUTE AUTO 0.06 K/uL (0.00-0.20); BASOPHILS PERCENT AUTO 0.5 % (0.0-1.0); EOSINOPHILS ABSOLUTE AUTO 0.34 K/uL (0.00-0.45); EOSINOPHILS PERCENT AUTO 2.9 % (0.0-6.0); IMMATURE GRAN ABSOLUTE AUTO 0.09 K/uL (0.00-0.05); IMMATURE GRAN PERCENT AUTO 0.8 % (0.0-0.4); LYMPHOCYTES ABSOLUTE AUTO 0.93 K/uL (1.00-4.80); LYMPHOCYTES PERCENT AUTO 7.9 % (24.0-44.0); MEAN PLATELET VOLUME 8.7 fL (9.4-12.4); MONOCYTES ABSOLUTE AUTO 0.84 K/uL (0.00-0.80); MONOCYTES PERCENT AUTO 7.1 % (0.0-8.0); NEUTROPHILS ABSOLUTE AUTO 9.58 K/uL (1.80-7.70); NEUTROPHILS PERCENT AUTO 80.8 % (41.0-71.0); NRBC ABSOLUTE 0.00 K/uL (0.00-0.02); NRBC PERCENT 0.0 /100WBC (0.0-0.2); PLATELET COUNT,PLT 322 K/uL (150-400); RED BLOOD CELL COUNT 5.15 M/uL (4.52-5.90); WHITE BLOOD CELL COUNT,WBC 11.84 K/uL (3.9-11.3)
[2024-10-29 05:58] LABS: BLOOD UREA NITROGEN,BUN 18.0 mg/dL (7.0-18.0); CARBON DIOXIDE,CO2 33.5 mmol/L (21.0-32.0); CHLORIDE,CL 99.0 mmol/L (98-107); CREATININE 1.0 mg/dL (0.8-1.3); EST CRCL DRUG DOSING (CG) 100.16 mL/min; GLUCOSE RANDOM 167.0 mg/dL (74-106); POTASSIUM,K 3.5 mmol/L (3.5-5.1); SODIUM,NA 135.0 mmol/L (136-148)
[2024-10-29 06:00] LABS: ESTIMATED GFR 99.0 mL/min (>60)
[2024-10-29] MEDS ORDERED: Furosemide 40 MG/4 ML VIAL IVPUSH SCH (09:00)
[2024-10-29] MEDS: Furosemide 40 MG/4 ML VIAL IVPUSH SCH (09:32)
[2024-10-30 05:57] LABS: BASOPHILS ABSOLUTE AUTO 0.06 K/uL (0.00-0.20); BASOPHILS PERCENT AUTO 0.6 % (0.0-1.0); EOSINOPHILS ABSOLUTE AUTO 0.42 K/uL (0.00-0.45); EOSINOPHILS PERCENT AUTO 3.9 % (0.0-6.0); IMMATURE GRAN ABSOLUTE AUTO 0.06 K/uL (0.00-0.05); IMMATURE GRAN PERCENT AUTO 0.6 % (0.0-0.4); LYMPHOCYTES ABSOLUTE AUTO 1.02 K/uL (1.00-4.80); LYMPHOCYTES PERCENT AUTO 9.5 % (24.0-44.0); MEAN PLATELET VOLUME 8.8 fL (9.4-12.4); MONOCYTES ABSOLUTE AUTO 0.81 K/uL (0.00-0.80); MONOCYTES PERCENT AUTO 7.5 % (0.0-8.0); NEUTROPHILS ABSOLUTE AUTO 8.41 K/uL (1.80-7.70); NEUTROPHILS PERCENT AUTO 77.9 % (41.0-71.0); NRBC ABSOLUTE 0.00 K/uL (0.00-0.02); NRBC PERCENT 0.0 /100WBC (0.0-0.2); PLATELET COUNT,PLT 308 K/uL (150-400); RED BLOOD CELL COUNT 5.00 M/uL (4.52-5.90); WHITE BLOOD CELL COUNT,WBC 10.78 K/uL (3.9-11.3)
[2024-10-30 06:21] LABS: BLOOD UREA NITROGEN,BUN 19.0 mg/dL (7.0-18.0); CARBON DIOXIDE,CO2 34.8 mmol/L (21.0-32.0); CHLORIDE,CL 100.0 mmol/L (98-107); CREATININE 1.1 mg/dL (0.8-1.3); EST CRCL DRUG DOSING (CG) 91.05 mL/min; GLUCOSE RANDOM 111.0 mg/dL (74-106); POTASSIUM,K 4.3 mmol/L (3.5-5.1); SODIUM,NA 137.0 mmol/L (136-148)
[2024-10-30 06:36] LABS: ESTIMATED GFR 88.0 mL/min (>60)
[2024-10-30] MEDS: Furosemide 40 MG/4 ML VIAL IVPUSH SCH (16:13)
[2024-10-30] MEDS: Amoxicillin/Clavulanate K 875-125 MG Tab PO SCH (21:38)
[2024-10-31 06:19] LABS: BASOPHILS ABSOLUTE AUTO 0.08 K/uL (0.00-0.20); BASOPHILS PERCENT AUTO 0.7 % (0.0-1.0); EOSINOPHILS ABSOLUTE AUTO 0.43 K/uL (0.00-0.45); EOSINOPHILS PERCENT AUTO 3.7 % (0.0-6.0); IMMATURE GRAN ABSOLUTE AUTO 0.08 K/uL (0.00-0.05); IMMATURE GRAN PERCENT AUTO 0.7 % (0.0-0.4); LYMPHOCYTES ABSOLUTE AUTO 1.22 K/uL (1.00-4.80); LYMPHOCYTES PERCENT AUTO 10.4 % (24.0-44.0); MEAN PLATELET VOLUME 9.2 fL (9.4-12.4); MONOCYTES ABSOLUTE AUTO 0.93 K/uL (0.00-0.80); MONOCYTES PERCENT AUTO 7.9 % (0.0-8.0); NEUTROPHILS ABSOLUTE AUTO 9.02 K/uL (1.80-7.70); NEUTROPHILS PERCENT AUTO 76.6 % (41.0-71.0); NRBC ABSOLUTE 0.00 K/uL (0.00-0.02); NRBC PERCENT 0.0 /100WBC (0.0-0.2); PLATELET COUNT,PLT 377 K/uL (150-400); RED BLOOD CELL COUNT 5.07 M/uL (4.52-5.90); WHITE BLOOD CELL COUNT,WBC 11.76 K/uL (3.9-11.3)
[2024-10-31 06:43] LABS: BLOOD UREA NITROGEN,BUN 22.0 mg/dL (7.0-18.0); CARBON DIOXIDE,CO2 33.2 mmol/L (21.0-32.0); CHLORIDE,CL 100.0 mmol/L (98-107); CREATININE 1.3 mg/dL (0.8-1.3); EST CRCL DRUG DOSING (CG) 77.04 mL/min; ESTIMATED GFR 72.0 mL/min (>60); GLUCOSE RANDOM 109.0 mg/dL (74-106); POTASSIUM,K 3.7 mmol/L (3.5-5.1); SODIUM,NA 139.0 mmol/L (136-148)
[2024-11-01 06:09] LABS: BASOPHILS ABSOLUTE AUTO 0.09 K/uL (0.00-0.20); BASOPHILS PERCENT AUTO 0.8 % (0.0-1.0); EOSINOPHILS ABSOLUTE AUTO 0.35 K/uL (0.00-0.45); EOSINOPHILS PERCENT AUTO 3.1 % (0.0-6.0); IMMATURE GRAN ABSOLUTE AUTO 0.07 K/uL (0.00-0.05); IMMATURE GRAN PERCENT AUTO 0.6 % (0.0-0.4); LYMPHOCYTES ABSOLUTE AUTO 1.27 K/uL (1.00-4.80); LYMPHOCYTES PERCENT AUTO 11.4 % (24.0-44.0); MEAN PLATELET VOLUME 8.4 fL (9.4-12.4); MONOCYTES ABSOLUTE AUTO 0.89 K/uL (0.00-0.80); MONOCYTES PERCENT AUTO 8.0 % (0.0-8.0); NEUTROPHILS ABSOLUTE AUTO 8.45 K/uL (1.80-7.70); NEUTROPHILS PERCENT AUTO 76.1 % (41.0-71.0); NRBC ABSOLUTE 0.00 K/uL (0.00-0.02); NRBC PERCENT 0.0 /100WBC (0.0-0.2); PLATELET COUNT,PLT 348 K/uL (150-400); RED BLOOD CELL COUNT 5.11 M/uL (4.52-5.90); WHITE BLOOD CELL COUNT,WBC 11.12 K/uL (3.9-11.3)
[2024-11-01 06:29] LABS: BLOOD UREA NITROGEN,BUN 22.0 mg/dL (7.0-18.0); CARBON DIOXIDE,CO2 34.7 mmol/L (21.0-32.0); CHLORIDE,CL 101.0 mmol/L (98-107); CREATININE 1.2 mg/dL (0.8-1.3); EST CRCL DRUG DOSING (CG) 83.47 mL/min; GLUCOSE RANDOM 105.0 mg/dL (74-106); POTASSIUM,K 3.7 mmol/L (3.5-5.1); SODIUM,NA 141.0 mmol/L (136-148)
[2024-11-01 06:32] LABS: ESTIMATED GFR 79.0 mL/min (>60)
[2024-11-01 12:19] VITALS: BP 128/64; PULSE 81
== END 2024-11-01 11:35 | disposition home or self-care (01) | DRG 420 ==
LOC: MW.ED 11:17 → MW.MS 15:53 → MW.ICU 10-25 10:44 → MW.MS 10-27 13:43
PROVIDERS: ADMIT Family Medicine; ATTEND Internal Medicine
PROC: 3E03329 Introduction of Other Anti-infective into Peripheral Vein, Percutaneous Approach (ICD-10-PCS; principal; 2024-10-21)
PROC: 5A09357 Assistance with Respiratory Ventilation, Less than 24 Consecutive Hours, Continuous Positive Airway Pressure (ICD-10-PCS; 2024-10-21)
DX: E11.628 Type 2 diabetes mellitus with other skin complications (principal); L03.116 Cellulitis of left lower limb; J96.02 Acute respiratory failure with hypercapnia; J96.01 Acute respiratory failure with hypoxia; Z68.44 Body mass index [BMI] 60.0-69.9, adult; I50.810 Right heart failure, unspecified; I27.20 Pulmonary hypertension, unspecified; J44.9 Chronic obstructive pulmonary disease, unspecified; K21.9 Gastro-esophageal reflux disease without esophagitis; M19.90 Unspecified osteoarthritis, unspecified site; L40.9 Psoriasis, unspecified; M54.9 Dorsalgia, unspecified; F32.A Depression, unspecified; F17.200 Nicotine dependence, unspecified, uncomplicated; E66.813 Obesity, class 3; G47.33 Obstructive sleep apnea (adult) (pediatric); B35.9 Dermatophytosis, unspecified; B96.89 Other specified bacterial agents as the cause of diseases classified elsewhere; B37.2 Candidiasis of skin and nail; L30.4 Erythema intertrigo; Z79.84 Long term (current) use of oral hypoglycemic drugs; Z79.899 Other long term (current) drug therapy
CPT/HCPCS: 36410; 36415; 36600; 71275; 71275-26; 73701-26-LT; 73701-LT; 80048; 80053; 80202; 82803; 82947; 83036; 83605; 83735; 84484; 85025; 87040; 87070; 87075; 87101; 87205; 94660; 96365; 96366; 96367; 97110-GO; 97161-GP; 97165-GO; 99222; 99231; 99232; 99239; 99284-25; 99285; A9270-GY; J1650; J1815-GY; J1885; J1938; J2270; J2405; J2543; J3010; J3371; J3372; J3374; J7030; J7040; J7050; Q9967